=== PATIENT | female | born 1980 | race Two or more races ===

== ENCOUNTER 2024-01-30 11:04 | Emergency (ER) | payer MEDICAID, OTHER ==
[~2024-01-30] VITALS: Ht 167.6 cm; Wt 69.4 kg
[2024-01-30] MEDS ORDERED: ACETAMINOPHEN ES 500 MG TABLET ONE (11:34)
[2024-01-30] MEDS ORDERED: IBUPROFEN 600 MG TABLET ONE (11:35)
[2024-01-30] MEDS: IBUPROFEN 600 MG TABLET PO ONE (11:38)
[2024-01-30] MEDS: ACETAMINOPHEN ES 500 MG TABLET PO ONE (11:38)
[2024-01-30] MEDS ORDERED: IBUP-1957 PO (14:09)
[2024-01-30 14:21] VITALS: BP 122/62; TEMP 98.4; O2SAT 99
== END 2024-01-30 14:22 | disposition home or self-care (01) ==
LOC: ER 11:20
DX: M79.621 Pain in right upper arm (principal)
CPT/HCPCS: 73030-TC; 82962-TC; 93971-TC